=== PATIENT | male | born 1960 | race African-American/Black ===

== ENCOUNTER 2016-10-22 10:45 | Outpatient (CLI) | payer MEDICAID ==
[~2016-10-22] VITALS: Ht 167.6 cm; Wt 95.5 kg
--- NOTE | ~2016-10-22 | HEMODYNAMI ---
PATIENT:NED HOLDER MEDICAL RECORD: [id number] : 56 LOCATION:[facility] ADMISSION DATE: 10/22/16 Generatedon:10/22/201614:34 Patient name: NED HOLDER Patient #: [id number] SSN: : 1960 Date of study: 10/22/2016 Page: Of Hemodynamic Procedure Report Patient Data Patient Demographics Procedure consent was obtained First Name: NED Gender: Male Last Name: GLORY : 1960 Patient #: [id number] Age: 55 year(s) Race: Black Additional ID: [id number] Contact details [address]: [address] [place] [address] State: [place] City: [place] Zip code: [address] Past Medical History Allergies: No known allergies Admission Admission Data Admission Date: 10/22/2016 Admission Time: 10:45 Arrival Date: 10/22/2016 Arrival Time: 0:00 Admit Source: Other Height (in.): 65.75 BSA: 2.04 (m2) Height (cm.): 167 BMI: 34.22 (kg/m2) Weight (lbs.): 210.43 Weight (kg.): 95.45 Lab Results Lab Result Date: 10/22/2016 Lab Result Time: 0:00 Biochemistry Name Units Result Min Max BUN mg/dl 47 --(----)-* 7 18 Creatinine mg/dl 4.6 --(----)-* 0.6 1.3 CBC Name Units Result Min Max Hematocrit % 46.3 --(-*--)-- 42 54 Hemoglobin g/dl 15.4 --(-*--)-- 13.5 17.5 Procedure Procedure Types Cath Procedure Diagnostic Procedure LHC [facility] w/Coronaries Miscellaneous Procedures Moderate Sedation up to 15 minutes Peripheral Cath Diagnostic Procedure Abd/Extremity Renal Bilat Renal Arteriogram Procedure Description Procedure Date Procedure Date: 10/22/2016 Procedure Start Time: 14:17 Procedure End Time: 14:31 Procedure Staff Name Function Curtis Yo MD Performing Physician Clarita Andrade RT Scrub Kasandra Mulligan RT Monitor Sarai Boyd RN Nurse Procedure Data Cath Procedure Fluoroscopy Diagnostic fluoroscopy Total fluoroscopy Time: 2.5 time: 2.5 min min Diagnostic fluoroscopy Total fluoroscopy dose: 672 dose: 672 mGy mGy Contrast Material Contrast Material Type Amount (ml) Isovue 300 64 Entry Location Entry Primary Successful Side Size Upsize Upsize Entry Closure Succes sful Closure Location (Fr) 1 (Fr) 2 (Fr) Remarks Device Remarks Femoral Right 5 Fr Exoseal artery Estimated blood loss: 10 ml Diagnostic catheters Device Type Used For End Catheter Placement Cordis 5Fr JL 4.0 Procedure Catheter (MP) Cordis 5Fr 3DRC Catheter Procedure (MP) Procedure Complications No complications Procedure Medications Medication Administration Route Dosage Oxygen NC 2 l/min Lidocaine 2% added to field 20 Heparin Flush Bag added to field 2 bags (1000units/500ml NS) 0.9% NaCl I.V. 100 ml/hr Versed I.V. 1 mg Fentanyl I.V. 50 mcg Versed I.V. 0.5 mg Fentanyl I.V. 25 mcg Hemodynamics Rest BSA: 2.04 (m2) HGB: 15.4 (g/dl) O2 Consumption: Estimated: 260.66 (ml/min) O2 Co nsumption indexed: Estimated:127.77 (ml/min/m) Heart Rate: 96 (bpm) Snapshots Pre Cath Intra NCS Post Cath Vital Signs Time Heart Resp SPO2 etCO2 UI5popg NIBP (mmHg) Rhythm Pain Sedatio n Rate (ipm) (%) (mmHg) (mmHg) Status Level (bpm) 13:48:35 95 17 96 0 0 164/109(136) NSR 0 (11) 10(A) , No pain 13:52:58 95 23 97 0 0 155/108(128) NSR 0 (11) 10(A) , No pain 13:57:17 95 16 95 0 0 150/96(111) NSR 0 (11) 10(A) , No pain 14:01:32 95 17 94 0 0 147/103(130) NSR 0 (11) 10(A) , No pain 14:05:46 99 16 98 0 0 154/103(137) NSR 0 (11) 10(A) , No pain 14:10:06 97 14 98 0 0 148/98(120) NSR 0 (11) 9(A) , No pain 14:14:24 100 16 98 0 0 141/100(124) NSR 0 (11) 9(A) , No pain 14:18:38 99 16 98 0 0 123/104(119) NSR 0 (11) 9(A) , No pain 14:22:45 100 15 98 0 0 139/113(136) NSR 0 (11) 9(A) , No pain 14:26:59 98 16 98 0 0 151/102(117) NSR 0 (11) 9(A) , No pain 14:31:17 102 16 98 0 0 149/100(124) NSR 0 (11) 10(A) , No pain Medications Time Medication Route Dose Verified Delivered Reason Notes Effe ctiveness by by 13:53:04 Oxygen NC 2 Curtis Buffie used for l/min Srinath Boyd RN procedure 13:53:11 Lidocaine 2% added 20ml Curtis Curtis for local to vial Srinath Yo MD anesthetic field 13:53:18 Heparin Flush added 2 Curtis Curtis used for Bag to bags Srinath Yo MD procedure (1000units/500ml field NS) 13:53:29 0.9% NaCl I.V. 100 Curtis Buffie Per ml/hr Srinath Boyd RN physician 14:01:10 Versed I.V. 1 mg Curtis Buffie for Srinath Boyd RN sedation 14:01:16 Fentanyl I.V. 50 Curtis Buffie for mcg Srinath Boyd RN sedation 14:18:17 Versed I.V. 0.5 Curtis Buffie for mg Srinath Boyd RN sedation 14:18:21 Fentanyl I.V. 25 Curtis Buffie for mcg Srinath Boyd RN sedation Procedure Log Time Note 13:33:26 Lab Result : BUN 47 mg/dl 13:33:26 Lab Result : Hemoglobin 15.4 g/dl 13:33:26 Lab Result : Creatinine 4.6 mg/dl 13:33:26 Lab Result : Hematocrit 46.3 % 13:33:35 Diagnostic Cath Status : Elective 13:34:05 Admit Source: Other 13:34:07 Arrival Date: 10/22/2016 12:00:00 AM 13:34:17 Patient Height : 65.75 cm 13:34:24 Patient Weight : 210.43 kg 13:34:43 Sarai Boyd RN sent for patient. Start room use. 13:34:45 Time tracking: Regular hours 13:34:50 Plan of Care:Hemodynamics will remain stable., Cardiac rhythm will remain stable., Comfort level will be maintained., Respiratory function will remain adequate., Patient/ family verbilizes understanding of procedure., Procedure tolerated without complication., Recovers from procedure without complications.. 13:36:13 H&P Date Dictated: 10/04/2016 Within 30 days and on chart., H&P Addendum completed by physician on day of procedure. (MUST COMPLETE FOR ALL OUTPATIENTS). 13:43:03 Patient received from Pre/Post Procedure Room to CCL 1 Alert and oriented. Tansferred to table in Supine position. 13:43:04 Warm blankets applied, and porsha hugger turned on for patient comfort. 13:43:05 Correct patient and procedure confirmed by team. 13:43:06 Signed procedure consent form obtained from patient. 13:43:08 ECG and BP/O2 sat monitors applied to patient. 13:43:13 Pre-procedure instructions explained to patient. 13:43:15 Family in waiting room. 13:43:17 Patient NPO since Midnight. 13:44:00 Patient allergic to No known allergies 13:44:03 Is the patient allergic to Iodine/contrast media? No. 13:44:22 Is patient on blood thinner?No 13:44:35 Patient diabetic? Yes. 13:44:45 If diabetic: On Metformin? No 13:44:52 Snore? Yes 13:45:02 IV patent on arrival in left hand with 0.9% NaCl at [facility]. 13:45:11 Lab results completed and on chart. 13:45:17 Right groin area was prepped with chlora-prep and draped in sterile fashion 13:45:18 Alarms reviewed by R. N. 13:45:19 Sharps counted by scrub and verified by R.N. 13:45:20 Physician paged 13:45:21 Physician arrived 13:46:10 Sleep apnea? Unknown 13:46:37 Airway obstruction? No ? 13:46:47 Dentures? No ? 13:47:23 Vital chart was started 13:47:24 Baseline sample Acquired. 13:47:29 Rhythm: sinus rhythm 13:47:30 Full Disclosure recording started 13:53:04 Oxygen 2 l/min NC was administered by Sarai Boyd RN; used for procedure; 13:53:11 Lidocaine 2% 20ml vial added to field was administered by Curtis Yo MD; for local anesthetic; 13:53:18 Heparin Flush Bag (1000units/500ml NS) 2 bags added to field was administered by Curtis Yo MD; used for procedure; 13:53:29 0.9% NaCl 100 ml/hr I.V. was administered by Sarai Boyd RN; Per physician; 13:56:20 Use device set Femoral Dx 13:56:21 Acist Syringe opened to sterile field. 13:56:22 Bag Decanter opened to sterile field. 13:56:22 Medline Cath Pack opened to sterile field. 13:56:22 Terumo 5Fr Homer Sheath opened to sterile field. 13:56:23 St Louie 260cm J .035 wire opened to sterile field. 13:56:24 Acist Hand Control opened to sterile field. 13:56:25 Acist Manifold opened to sterile field. 13:56:25 Diagnostic Infinity 5Fr Multipack catheter opened to sterile field. 13:56:26 Tegaderm 4 x 4 opened to sterile field. 13:56:37 --------ALL STOP TIME OUT------ 13:56:38 Final Timeout: patient, procedure, and site verified with staff and physician. All members of the team are in agreement. 13:56:41 Right groin site verified by team. 13:56:54 Physical assessment completed. ASA score P 2 - A patient with mild systemic disease as per Curtis Yo MD. 13:57:05 Sedation plan: IV Moderate Sedation Versed, Fentanyl 14:00:36 Zero performed for pressure channel P1 14:00:47 Zero performed for pressure channel P1 14:01:10 Versed 1 mg I.V. was administered by Saari Boyd RN; for sedation; 14:01:16 Fentanyl 50 mcg I.V. was administered by Sarai Boyd RN; for sedation; 14:15:42 Procedure started. 14:17:09 Local anesthetic to right femoral artery with Lidocaine 2% by Curtis Yo MD.INITIAL ACCESS ONLY 14:18:17 Versed 0.5 mg I.V. was administered by Sarai Boyd RN; for sedation; 14:18:21 Fentanyl 25 mcg I.V. was administered by Sarai Boyd RN; for sedation; 14:18:34 A 5 Fr sheath was inserted into the Right Femoral artery 14:18:57 A Cordis 5Fr JL 4.0 Catheter (MP) was advanced over the wire and used for Procedure. 14:19:21 LCA angiography performed. 14:20:47 Catheter removed. 14:20:56 A Cordis 5Fr 3DRC Catheter (MP) was advanced over the wire and used for Procedure. 14:22:02 RCA angiography performed. 14:24:54 Right renal angiography performed. 14:25:32 Left renal angiography performed. 14:26:54 Catheter removed. 14:27:10 Cordis 5Fr Exoseal opened to sterile field. 14:27:28 Sheath removed intact; hemostasis achieved with Exoseal to the Right Femoral artery. 14:27:37 Procedure ended.(Physican Out) 14:27:56 Fluoroscopy time 02.50 minutes. 14:28:06 Fluoroscopy dose: 672 mGy 14:28:06 Flurop Dose total: 672 14:28:17 Contrast amount:Isovue 300 64ml. 14:28:19 Sharps counted by scrub and verified by R.N. 14:28:23 Insertion/operative site no bleeding no hematoma. 14:29:10 Post right femoral artery:stable 14:29:19 Post-procedure physical assessment completed. ASA score P 3 - A patient with severe systemic disease as per Curtis Yo MD. 14:29:25 Post procedure rhythm: unchanged. 14:29:30 Estimated blood loss: 10 ml 14:29:33 Post procedure instruction explained to patient.Patient verbalizes understanding. 14:30:04 Procedure type changed to Cath procedure, Diagnostic procedure, LHC, LHC w/Coronaries, Miscellaneous Procedures, Moderate Sedation up to 15 minutes, Peripheral Cath Diagnostic Procedure, Abd/Extremity, Renal, Bilat Renal Arteriogram 14:30:10 Procedure and supply charges have been captured, reviewed, submitted and are correct. 14:30:49 Procedure Complication : No complications 14:30:53 Vital chart was stopped 14::54 See physician's report for complete and final results. 14:30:55 Report given to Pre/Post Procedure Room. 14:30:59 Patient transfered to Pre/Post Procedure Room with Stretcher. 14:31:02 Procedure ended. 14:31:02 Full Disclosure recording stopped 14:31:06 End room use (Document Last) Device Usage Item Name Manufacture Quantity Catalog Hospital Part Current Minimal Lo t# / Number Charge Number Stock Stock Serial# Code Acist Acist 1 83050 [id number] 319309 [id number] 20 Syringe [employer] Inc Bag Microtek 1 2002S 522494 92158 680939 5 Decanter [employer] Inc. Medline Cardinal 1 [id number] 229151 02455 334247 5 Cath Pack Health Terumo 5Fr Terumo 1 [id number] 618794 789082 395437 [address] [facility] Louie 1 141613 808320 888659 488888 30 260cm J .035 wire Acist Hand Acist 1 35129 671216 474295 285055 5 Control [employer] Inc Acist Acist 1 99364 405185 285029 069676 5 Manifold [employer] Inc Diagnostic Cardinal 1 EC1074 689895 92489 079557 30 Vantage Sportsity Health 5Fr Multipack catheter Tegaderm 4 3M 1 1626W 896949 102090 597817 5 x 4 Cordis 5Fr Cardinal 1 213455 5 JL 4.0 Health Catheter (MP) Cordis 5Fr Cardinal 1 471313 5 3DRC Health Catheter (MP) Cordis 5Fr Cardinal 1 EX500 145333 071968 459217 10 WeDuc Signature Audit [place] Stage Time Signature Unsigned Intra-Procedure 10/22/2016 Clarita Andrade 2:34:43 PM RT(R) Signatures Monitor : Kasandra Mulligan RT Signature : Date : Time : [facility] [address] [place] [address]
[2016-10-22] MEDS ORDERED: ZYLOPRIM100 MG PO (10:55)
[2016-10-22] MEDS ORDERED: GLIMEPIRIDE4 MG PO (10:55)
[2016-10-22] MEDS ORDERED: FUROSEMIDE40 MG PO (10:55)
[2016-10-22] MEDS ORDERED: NORVASC10 MG PO (10:56)
[2016-10-22] MEDS ORDERED: JANUVIA50 MG PO (10:56)
[2016-10-22] MEDS ORDERED: NEURONTIN 300300 MG PO (10:56)
[2016-10-22 11:07] VITALS: BP 172/105; Ht 167.6 cm; Wt 95.5 kg
[2016-10-22 11:31] LABS: BASOPHILS 0.3 % (0.0-2.0); EOSINOPHILS 3.8 % (0-7); HEMATOCRIT 46.3 % (42.0-54.0); HEMOGLOBIN 15.4 g/dL (13.5-17.5); LYMPHOCYTES 39.5 % (15-50); MCH 28.2 pg (26.0-34.0); MCHC 33.3 g/dL (31.0-37.0); MCV 84.6 fL (80.0-100.0); MEAN PLATELET VOLUME 10.7 fL (7.4-10.4); MONOCYTES 9.5 % (2-11); NEUTROPHILS 46.9 % (40-80); PLATELET COUNT 141 10x3/uL (130-400); RBC 5.47 10x6/uL (4.20-6.10); RDW 12.8 % (11.5-14.5); WBC 3.9 10x3/uL (4.8-10.8)
[2016-10-22 11:53] LABS: CALCIUM 9.1 mg/dL (8.5-10.1); CARBON DIOXIDE 31.5 mmol/L (21.0-32.0); CREATININE - SERUM 4.6 mg/dL (0.6-1.3); POTASSIUM - SERUM 4.5 mmol/L (3.5-5.1)
--- NOTE | 2016-10-22 15:04 | NUR ---
DR ARMENTA AT BEDSIDE TALKING TO FAMILY PATIENT DENIED CHEST PAIN VSS WITH 5 FR EXOSEAL R/GROIN CDI
--- NOTE | 2016-10-22 15:24 | NUR ---
VSS WITH CHEST PAIN DENIED 5 FR EXOSEAL R/GROIN CDI NO BLEEDING NO HEMATOMA NOTED.
--- NOTE | 2016-10-22 16:09 | NUR ---
NO DISTRESS NOTED PATIENT SLEEPING WITH VSS. 5 FR EXOSEAL R/GROIN CDI NO BLEEDING NO HEMATOMA NOTED.
--- NOTE | 2016-10-22 17:54 | NUR ---
1630-ASSUMED CARE, IV FLUIDS PER PUMP AT 150CC/HR, RIGHT GROIN CDI, NO HEMATOMA OR BLEEDING NOTED, GROIN SOFT TO TOUCH. 1745-IV FLUIDS COMPLETE, IV D'C WITH CATH TIP INTACT, WRITTEN AND VERBAL INSTRUCTIONS GIVEN TO PT AND , UNDERSTOOD.
--- NOTE | 2016-11-01 12:24 | OP ---
PATIENT NAME: NED HOLDER MEDICAL RECORD: [id number] :56 LOCATION:D.CAT ADMISSION DATE: SURGEON: JACKSON ARMENTA M.D. DATE OF OPERATION: 10/22/2016 REFERRING PHYSICIAN: Dr. Vadim Bullock at [place], [place]. PROCEDURES PERFORMED: 1. Selective coronary angiography. 2. Renal angiography. INDICATION: A 55-year-old gentleman, who presents with cardiomyopathy and accelerated hypertension. EQUIPMENT USED: A 5-Faroese JL4, Leonardo right. TECHNIQUE: A 5-Faroese sheath was inserted in retrograde fashion in the right common femoral artery. Next, selective coronary angiography was performed in standard views using 5-Faroese JL4 and Leonardo right. Renal angiography was performed using the Leonardo right as well. CORONARY ANATOMY: 1. Left main: Left main trunk is moderate in caliber. It gives rise to the LAD and circumflex. There is no obstruction. 2. LAD: This is a large caliber vessel extending to the apex. The proximal vessel demonstrates a ruptured plaque representing a 60% stenosis or more. The first diagonal branch has diffuse disease as well. 3. Circumflex: This is moderate in caliber. The first lateral branch has a ruptured plaque representing an 80% stenosis. 4. Right coronary: This vessel is large in caliber and dominant. The proximal vessel has an ulcerated 80% stenosis. The mid vessel has an 80% stenosis as well. The distal vessel has an 80%-90% stenosis. 5. Renal arteries: Left renal artery is large in caliber. It has a significant plaque representing an 80% stenosis in the proximal 1/3 of the vessel. Right renal artery is not well visualized. It appears to have moderate disease in the proximal segment. 6. Left ventricle: Left ventriculogram was not performed secondary to the contrast load and the patient's elevated creatinine. IMPRESSION: 1. Significant 3-vessel coronary artery disease. 2. Severe left ventricular dysfunction by recent echo revealing ejection fraction of 10%-15%. 3. Renal artery stenosis. RECOMMENDATIONS: At this point, our choices are somewhat limited. I am concerned he would have to undergo dialysis if he underwent bypass grafting. Furthermore, with his reduced ejection fraction, he may not be a good candidate for bypass grafting. However, multivessel intervention carries hazards of causing renal failure as well. At this point, I will review the situation with the patient and his family and Dr. Bullock and come up with a strategy after that. TRANSINT:[id number] Voice Confirmation ID: [id number] DOCUMENT ID: [id number] OPERATIVE REPORT [id number] NED HOLDER TIMOTHY E M.D. at 1224 CC: [id number] DICTATION DATE: 10/22/16 1440 SUPERVISOR HEAT TREATING: 10/22/16 1459 DEP CLI 10/22/16 [place] [id number]
== END 2016-10-22 17:50 | disposition home or self-care (01) ==
LOC: D.CATH 10:45
PROVIDERS: Internal Medicine Cardiovascular Disease
DX: I25.10 Atherosclerotic heart disease of native coronary artery without angina pectoris (principal); I42.9 Cardiomyopathy, unspecified; I10 Essential (primary) hypertension; I70.1 Atherosclerosis of renal artery

== ENCOUNTER 2016-11-27 09:00 | Outpatient (CLI) | payer MEDICAID ==
[~2016-11-27] VITALS: Ht 167.6 cm; Wt 95.5 kg
--- NOTE | ~2016-11-27 | OP ---
PATIENT NAME: NED HOLDER MEDICAL RECORD: [id number] :56 LOCATION:D.CAT ADMISSION DATE: SURGEON: JACKSON ARMENTA M.D. DATE OF OPERATION: 11/27/2016 REFERRING PHYSICIAN: Dr. Vadim Bullock at [place], [place]. PROCEDURES PERFORMED: 1. PTCA and stent placement to the LAD. 2. PTCA and stent placement in the circumflex. INDICATION: A 56-year-old gentleman who recently presents with angina and heart failure. Cardiac catheterization revealed high-grade disease involving the LAD, circumflex, and right coronary artery. At this point, he is not considered a surgical candidate because of his renal issues. EQUIPMENT USED: A 6-Maltese XB LAD 4.0 guide, BMW guide wire, 3.0 x 30 mm Integrity stent, 2.5 x 22 mm Integrity stent, 2.25 x 14 mm Integrity stent. DESCRIPTION OF INTERVENTION: A 6-Maltese sheath was inserted in retrograde fashion in the right common femoral artery. Next, a 6-Maltese XB LAD guide was advanced and engaged in the left main coronary artery. A 100 units per kilogram of heparin was infused. Injections revealed ruptured plaque representing an 80%-90% stenosis in the proximal LAD. The disease process extended past the first diagonal branch. At this point, a BMW guide wire was placed in the distal vessel of the LAD. A 3.0 x 30 mm Integrity stent was placed across this long diseased area and deployed at 14 atmospheres. Injection reveals stent to be widely patent with no compromise of the diagonal branch. Attention was then turned to the circumflex. Injections revealed a long 90% stenosis involving the first lateral branch. There appeared to be a ruptured plaque as well. A BMW guide wire was placed in the distal vessel. It was stented with a 2.5 x 22 mm Integrity stent at 12 atmospheres. Injection shows stent to be widely patent. However, distal to the stent, there appeared to be an edge dissection. When the wire was pulled back, we confirmed this finding. At this point, a 2.25 x 14 mm Integrity stent was placed in the distal edge of the existing stent. Stent was deployed at 11 atmospheres. Injection revealed both stents to be widely patent with 0% residual stenosis. This resulted in resolution of the edge dissection. At this point, the wire and guide were removed. IMPRESSION: 1. Successful percutaneous transluminal coronary angioplasty and stent in the LAD with 0% residual stenosis. 2. Successful percutaneous transluminal coronary angioplasty and stent in the circumflex with 0% residual stenosis. PLAN: I will likely stage ____ lesion in 10 days to 2 weeks to allow his renal function to recover. TRANSINT:[id number] Voice Confirmation ID: [id number] DOCUMENT ID: [id number] OPERATIVE REPORT [id number] NED HOLDER TIMOTHY E M.D. CC: [id number] DICTATION DATE: 11/27/16 145 REGISTERED REPRESENTATIVE: 11/27/16 2351 DEP CLI 11/27/16 [place] [id number] [place] [id number]
--- NOTE | ~2016-11-27 | HEMODYNAMI ---
PATIENT:NED HOLDER MEDICAL RECORD: [id number] : 56 LOCATION:[facility] ADMISSION DATE: 11/27/16 Generatedon:11/27/201615:00 Patient name: NED HOLDER Patient #: [id number] SSN: : 1960 Date of study: 11/27/2016 Page: Of Hemodynamic Procedure Report Patient Data Patient Demographics Procedure consent was obtained First Name: NED Gender: Male Last Name: GLORY : 1960 Patient #: [id number] Age: 56 year(s) Race: Black Additional ID: [id number] Contact details [address]: [address] [place] [address] State: [place] City: [place] Zip code: [address] Past Medical History Allergies: No known allergies Admission Admission Data Admission Date: 11/27/2016 Admission Time: 9:00 Admit Source: Other Lab Results Lab Result Date: 11/27/2016 Lab Result Time: 9:50 Biochemistry Name Units Result Min Max BUN mg/dl 52 --(----)-* 7 18 Creatinine mg/dl 4.9 --(----)-* 0.6 1.3 CBC Name Units Result Min Max Hematocrit % 42.8 --(*---)-- 42 54 Hemoglobin g/dl 14.4 --(*---)-- 13.5 17.5 Procedure Procedure Types Cath Procedure PCI Procedure Coronary Stent Initial x2 Miscellaneous Procedures Moderate Sedation up to 45 minutes Procedure Description Procedure Date Procedure Date: 11/27/2016 Procedure Start Time: 14:22 Procedure End Time: 15:00 Procedure Staff Name Function Alexia Kan RT Scrub Asif Velasquez RN Nurse Curtis Yo MD Performing Physician Dann Molina RT Monitor Procedure Data Cath Procedure Fluoroscopy Diagnostic fluoroscopy Total fluoroscopy Time: 8.3 time: 8.3 min min Diagnostic fluoroscopy Total fluoroscopy dose: dose: 1420 mGy 1420 mGy Contrast Material Contrast Material Type Amount (ml) Isovue 300 234 Entry Location Entry Primary Successful Side Size Upsize Upsize Entry Closure Succes sful Closure Location (Fr) 1 (Fr) 2 (Fr) Remarks Device Remarks Femoral Right 6 Fr Exoseal artery Short Estimated blood loss: 10 ml Procedure Medications Medication Administration Route Dosage Oxygen NC 2 l/min Heparin Flush Bag added to field 2 bags (1000units/500ml NS) 0.9% NaCl I.V. 100 ml/hr Fentanyl I.V. 50 mcg Versed I.V. 1 mg Heparin Bolus I.V. 9500 units Nitroglycerin IC/IA I.C. 100 mcg Brilinta P.O. 180 mg Hemodynamics Rest HGB: 14.4 (g/dl) Heart Rate: 97 (bpm) Snapshots Pre Cath Intra NCS Post Cath Vital Signs Time Heart Resp SPO2 etCO2 CB8tbls NIBP (mmHg) Rhythm Pain Sedatio n Rate (ipm) (%) (mmHg) (mmHg) Status Level (bpm) 14:03:55 91 17 96 0 0 168/110(133) NSR 0 (11) 10(A) , No pain 14:13:33 91 19 95 0 0 160/102(128) NSR 0 (11) 10(A) , No pain 14:17:57 96 18 98 0 0 174/99(127) NSR 0 (11) 10(A) , No pain 14:22:20 91 18 98 0 0 174/101(132) NSR 0 (11) 9(A) , No pain 14:26:33 93 16 98 0 0 158/94(131) NSR 0 (11) 9(A) , No pain 14:30:56 96 16 98 0 0 166/100(130) NSR 0 (11) 9(A) , No pain 14:35:20 95 15 99 0 0 180/103(133) NSR 0 (11) 9(A) , No pain 14:39:36 94 17 98 0 0 167/99(139) NSR 0 (11) 9(A) , No pain 14:44:00 95 16 99 0 0 169/102(130) NSR 0 (11) 9(A) , No pain 14:48:22 98 18 99 0 0 173/105(137) NSR 0 (11) 9(A) , No pain 14:52:46 99 17 99 0 0 176/109(141) NSR 0 (11) 9(A) , No pain 14:57:15 97 20 98 0 0 177/106(144) NSR 0 (11) 10(A) , No pain Medications Time Medication Route Dose Verified Delivered Reason Notes Effectiveness by by 14:17:54 Oxygen NC 2 Asif [place]ug[place] Per physician l/min Ron Velasquez RN RN 14:18:03 Heparin Flush added 2 Asif Asif used for Bag to bags Ron Velasquez RN procedure (1000units/500ml field RN NS) 14:18:12 0.9% NaCl I.V. 100 Asif Asif Per physician ml/hr Ron Velasquez RN RN 14:18:35 Fentanyl I.V. 50 Asif Asif for sedation mcg Ron Velasquez RN RN 14:18:41 Versed I.V. 1 mg Asif Gold for sedation Ron Velasquez RN RN 14:29:59 Heparin Bolus I.V. 9500 Asif Gold for units Ron Velasquez RN anticoagulation RN 14:44:01 Nitroglycerin I.C. 100 Asif Curtis for IC/IA mcg Ron Yo MD vasodilation RN 14:53:51 Brilinta P.O. 180 Asif Gold for mg Ron Velasquez RN antiplatelet RN therapy Procedure Log Time Note 13:40:23 Asif Velasquez RN sent for patient. Start room use. 13:54:39 Informed consent obtained and on chart 13:55:06 Admit Source: Other 13:55:21 Diagnostic Cath status Elective 13:55:25 Time tracking: Regular hours 13:55:28 Plan of Care:Hemodynamics will remain stable., Cardiac rhythm will remain stable., Comfort level will be maintained., Respiratory function will remain adequate., Patient/ family verbilizes understanding of procedure., Procedure tolerated without complication., Recovers from procedure without complications.. 13:58:05 Patient received from Pre/Post Procedure Room to CCL 1 Alert and oriented. Tansferred to table in Supine position. 13:58:06 Warm blankets applied, and porsha hugger turned on for patient comfort. 13:58:07 ECG and BP/O2 sat monitors applied to patient. 13:58:07 Correct patient and procedure confirmed by team. 13:58:24 H&P Date Dictated: 11/08/2016 Within 30 days and on chart., H&P Addendum completed by physician on day of procedure. (MUST COMPLETE FOR ALL OUTPATIENTS). 13:58:26 Pre-op teaching completed and patient verbalized understanding. 13:58:26 Pre-procedure instructions explained to patient. 13:58:27 Family in waiting room. 13:58:29 Patient NPO since Midnight. 14:02:40 Vital chart was started 14:07:33 Vital chart was started 14:08:39 Vital chart was stopped 14:12:28 Vital chart was started 14:14:38 Baseline sample Acquired. 14:14:43 Rhythm: sinus rhythm 14:14:51 Patient allergic to No known allergies 14:14:53 Is the patient allergic to Iodine/contrast media? No. 14:14:54 Is patient on blood thinner?No 14:14:55 Patient diabetic? Yes. 14:14:56 If diabetic: On Metformin? No 14:14:59 Previous problem with sedation/anesthesia? No ? 14:15:00 Snore? Yes 14:15:01 Sleep apnea? Yes 14:15:02 Deviated septum? No 14:15:02 Opens mouth fully? Yes 14:15:03 Sticks out tongue? Yes 14:15:04 Airway obstruction? No ? 14:15:06 Dentures? No ? 14:15:08 Pre procedure: right dorsailis pedis pulse 1+ Palpable, but thready & weak; easily obliterated 14:15:12 Patient pain scale 0/10 ?. 14:15:19 IV patent on arrival in right forearm with 0.9% NaCl at KVO. 14:15:58 Lab Result : BUN 52 mg/dl 14:15:58 Lab Result : Creatinine 4.9 mg/dl 14:15:58 Lab Result : Hemoglobin 14.4 g/dl 14:15:58 Lab Result : Hematocrit 42.8 % 14:16:08 Right groin area was prepped with chlora-prep and draped in sterile fashion 14:16:12 Lab results completed and on chart. 14:16:14 Alarms reviewed by R. N. 14:16:14 Sharps counted by scrub and verified by R.N. 14:16:19 Use device set Femoral PCI 14:16:20 Tegaderm 4 x 4 opened to sterile field. 14:16:21 St Louie 260cm J .035 wire opened to sterile field. 14:16:21 Merit BasixCompak Inflation Kit opened to sterile field. 14:16:22 Acist Manifold opened to sterile field. 14:16:23 Terumo 6Fr [place] Sheath opened to sterile field. 14:16:23 Medline Cath Pack opened to sterile field. 14:16:24 Bag Decanter opened to sterile field. 14:16:25 High Pressure Extension Tubing (Yo) opened to sterile field. 14:16:25 Acist Hand Control opened to sterile field. 14:16:25 Acist Syringe opened to sterile field. 14:16:59 Baca BMW [place] 2 J-tip 300cm 0.014 guide wir opened to sterile field. 14:17:13 Physician arrived 14:17:13 --------ALL STOP TIME OUT------ 14:17:14 Final Timeout: patient, procedure, and site verified with staff and physician. All members of the team are in agreement. 14:17:16 Right groin site verified by team. 14:17:20 Physical assessment completed. ASA score P 2 - A patient with mild systemic disease as per Curtis Yo MD. 14:17:23 Sedation plan: IV Moderate Sedation Versed, Fentanyl 14:17:54 Oxygen 2 l/min NC was administered by Asif Velasquez RN; Per physician; 14:18:03 Heparin Flush Bag (1000units/500ml NS) 2 bags added to field was administered by Asif Velasquez RN; used for procedure; 14:18:12 0.9% NaCl 100 ml/hr I.V. was administered by Asif Velasquez RN; Per physician; 14:18:35 Fentanyl 50 mcg I.V. was administered by Asif Velasquez RN; for sedation; 14:18:41 Versed 1 mg I.V. was administered by Asif Velasquez RN; for sedation; 14:22:04 Procedure started. 14:22:04 Full Disclosure recording started 14:22:09 Local anesthetic to right femoral artery with Lidocaine 2% by Curtis Yo MD.INITIAL ACCESS ONLY 14:23:10 A 6 Fr Short sheath was inserted into the Right Femoral artery 14:23:13 Zero performed for pressure channel P1 14:24:33 Cordis 6FR XBLAD 3.5 guide catheter opened to sterile field. 14:24:43 6 Fr xblad 3.5 guide catheter was inserted over the wire 14:26:48 Guide Catheter removed. unable to cannulate vessel. 14:26:54 Cordis 6FR XBLAD 4.0 guide catheter opened to sterile field. 14:27:52 6 Fr xblad 4 guide catheter was inserted over the wire 14:29:42 LCA angiography performed. 14:29:59 Heparin Bolus 9500 units I.V. was administered by Asif Velasquez RN; for anticoagulation; 14:31:38 BMW wire advanced. 14:31:39 Wire advanced across lesion. 14:33:19 Inflation Number: 1 A Medtronic Integrity 3.0 X 30 stent was prepped and advanced across the Prox LAD. The stent was deployed at 11 KALYN for 0:10 (min:sec). 14:34:39 Stent catheter was removed intact over wire. 14:34:42 Wire redirected to CX/OM. 14:39:26 Wire advanced across lesion. 14:40:43 Inflation Number: 1 A Medtronic Integrity 2.5 X 22 stent was prepped and advanced across the 1st Ob Monique. The stent was deployed at 14 KALYN for 0:10 (min:sec). 14:44:01 Nitroglycerin IC/IA 100 mcg I.C. was administered by Curtis Yo MD; for vasodilation; 14:47:33 Stent catheter was removed intact over wire. 14:49:35 Inflation Number: 2 A Medtronic Integrity 2.25 X 14 stent was prepped and advanced across the 1st Ob Monique. The stent was deployed at 11 KALYN for 0:10 (min:sec). 14:49:52 Stent catheter was removed intact over wire. 14:49:53 Wire removed. 14:49:54 Guide catheter removed. 14:50:00 Cordis 6Fr Exoseal opened to sterile field. 14:50:10 Sheath removed intact; hemostasis achieved with Exoseal to the Right Femoral artery. 14:52:48 Procedure ended.(Physican Out) 14:53:21 Fluoroscopy time 08.30 minutes. 14:53:28 Flurop Dose total: 1420 14:53:28 Fluoroscopy dose: 1420 mGy 14:53:34 Contrast amount:Isovue 300 234ml. 14:53:35 Sharps counted by scrub and verified by R.N. 14:53:51 Brilinta 180 mg P.O. was administered by Asif Velasquez RN; for antiplatelet therapy; 14:53:59 Insertion/operative site no bleeding no hematoma. 14:54:02 Post-op/insertion site Right Femoral artery dressed using a 4 x 4 and Tegaderm. 14:54:06 Post right femoral artery:stable, soft, clean and dry 14:54:08 Post Procedure Pulses reassessed and unchanged 14:54:13 Post-procedure physical assessment completed. ASA score P 2 - A patient with mild systemic disease as per Curtis Yo MD. 14:54:16 Post procedure rhythm: unchanged. 14:54:19 Estimated blood loss: 10 ml 14:54:21 Post procedure instruction explained to patient.Patient verbalizes understanding. 14:54:22 Patient needs reinforcement of post procedure teaching. 14:58:19 Procedure type changed to Cath procedure, PCI procedure, Coronary Stent Initial x2, Miscellaneous Procedures, Moderate Sedation up to 45 minutes 14:59:37 Procedure and supply charges have been captured, reviewed, submitted and are correct. 14:59:57 See physician's report for complete and final results. 14:59:58 Report given to Pre/Post Procedure Room. 15:00:07 Patient transfered to Pre/Post Procedure Room with Stretcher. 15:00:09 Procedure ended. 15:00:09 Full Disclosure recording stopped 15:00:20 End room use (Document Last) 15:00:38 Vital chart was stopped Intervention Summary Intervention Notes Time ActionType Lesion and Equipment Action# Pressure Duration Attributes Used 14:33:19 Place stent Prox LAD Medtronic 1 11 00:10 Integrity 3.0 X 30 stent 14:40:43 Place stent 1st Ob Monique Medtronic 1 14 00:10 Integrity 2.5 X 22 stent 14:49:35 Place stent 1st Ob Monique Medtronic 2 11 00:10 Integrity 2.25 X 14 stent Device Usage Item Name Manufacture Quantity Catalog Hospital Part Current Minimal L ot# / Number Charge Number Stock Stock Serial# Code Tegaderm 4 3M 1 [id number] 317310 289162 238[address] Louie 1 [id number] 200385 869738 135773 30 260cm J .035 wire Merit Merit 1 [id number] 315243 310418 15 BasixCompak Medical Inflation Kit Acist Acist 1 60884 428080 060987 003296 5 Manifold Medical [employer] Inc Terumo 6Fr Terumo 1 [id number] 106485 440903 658574 40 [place] Sheath Medline Cardinal 1 [id number] 224231 19865 725700 5 Cath Pack Health Bag Microtek 1 2002S 500513 14152 751840 5 DecAgileMD [employer] Inc[employer] Acist Hand Acist 1 25216 758871 452261 479915 5 Control Medical Systems Inc Acist Acist 1 95886 282228 535451 493767 20 Syringe Medical Systems Inc Baca BMW Baca 1 [id number] 128094 739819 244805 5 [place] 2 Vascular J-tip 300cm 0.014 guide wir Cordis 6FR Cardinal 1 [id number] 836649 891953 067244 10 XBLAD 3.5 Health guide catheter Cordis 6FR Cardinal 1 [id number] 473333 997857 383522 3 XBLAD 4.0 Health guide catheter Medtronic Medtronic 1 [id number] 048391 207382 027028 1 0 [id number] Integrity 3.0 X 30 stent Medtronic Medtronic 1 [id number] 068417 188799 1 0 [id number] Integrity 2.5 X 22 stent Medtronic Medtronic 1 [id number] 369448 400151 073458 1 0 [id number] Integrity 2.25 X 14 stent Cordis 6Fr Cardinal 1 EX600 985766 494490 517027 10 Theater [employer] High [facility] 1 [id number] 369196 11661 119780 10 Pressure Medical Extension Tubing (Yo) Signature Audit Vona Stage Time Signature Unsigned Intra-Procedure 11/27/2016 Dann Molina 3:00:36 PM RT(R) Signatures Monitor : Dann Molina RT Signature : Date : Time : [address] [place] [address]
[~2016-11-27 09:00] MED LIST: FUROSEMIDE40 MG PO; GLIMEPIRIDE4 MG PO; JANUVIA50 MG PO; NEURONTIN 300300 MG PO; NORVASC10 MG PO; ZYLOPRIM100 MG PO
[2016-11-27] MEDS ORDERED: MUCOMYST 20200 MG/M2 INH (09:23)
[2016-11-27 09:29] VITALS: BP 182/101; Ht 167.6 cm; Wt 95.5 kg
[2016-11-27 10:00] LABS: BASOPHILS 0.5 % (0-2); EOSINOPHILS 3.5 % (0-7); HEMATOCRIT 42.8 % (42.0-54.0); HEMOGLOBIN 14.4 g/dL (13.5-17.5); LYMPHOCYTES 36.3 % (15-50); MCH 28.3 pg (26.0-34.0); MCHC 33.6 g/dL (31.0-37.0); MCV 84.1 fL (80.0-100.0); MEAN PLATELET VOLUME 10.8 fL (7.4-10.4); MONOCYTES 8.5 % (2-11); NEUTROPHILS 51.2 % (40-80); PLATELET COUNT 169 10x3/uL (130-400); RBC 5.09 10x6/uL (4.20-6.10); WBC 4.2 10x3/uL (4.8-10.8)
[2016-11-27 10:07] LABS: ANION GAP 11.7 mmol/L (8-16); CALCIUM 8.5 mg/dL (8.5-10.1); CARBON DIOXIDE 28.9 mmol/L (21.0-32.0); CREATININE - SERUM 4.9 mg/dL (0.6-1.3); POTASSIUM - SERUM 4.6 mmol/L (3.5-5.1)
[2016-11-27] MEDS ORDERED: BRILINTA90 MG PO (15:06)
--- NOTE | 2016-11-27 18:04 | NUR ---
1515-RIGHT GROIN CDI, NO HEMATOMA OR BLEEDING NOTED, SOFT TO TOUCH. FAMILY AT SIDE 1545-NO CHANGE IN RIGHT GROIN, RESTING COMFORTABLY
== END 2016-11-27 19:10 | disposition home or self-care (01) ==
LOC: D.CATH 09:00
PROVIDERS: Internal Medicine Cardiovascular Disease
DX: I25.10 Atherosclerotic heart disease of native coronary artery without angina pectoris (principal); I42.9 Cardiomyopathy, unspecified; N19 Unspecified kidney failure; Z01.812 Encounter for preprocedural laboratory examination

== ENCOUNTER → 2017-12-29 08:37 | Outpatient (CLI) | payer MEDICAID ==
[~2017-12-29] VITALS: Ht 167.6 cm; Wt 85.5 kg
--- NOTE | ~2017-12-29 | HEMODYNAMI ---
PATIENT:NED HOLDER MEDICAL RECORD: [id number] : 56 LOCATION:[facility] ADMISSION DATE: 12/29/17 Generatedon:12/29/201711:25 Patient name: NED HOLDER Patient #: [id number] SSN: : 1960 Date of study: 12/29/2017 Page: Of Hemodynamic Procedure Report Patient Data Patient Demographics Procedure consent was obtained First Name: NED Gender: Male Last Name: GLORY : 1960 [facility] Initial: NOEL Age: 57 year(s) Patient #: [id number] Race: Black Additional ID: [id number] Contact details Address: [address] [place] [address] State: [place] City: [place] Zip code: [address] Past Medical History Allergies: No known allergies Admission Admission Data Admission Date: 12/29/2017 Admission Time: 8:37 Admit Source: Other Lab Results Lab Result Date: 12/29/2017 Lab Result Time: 9:30 Biochemistry Name Units Result Min Max BUN mg/dl 42 --(----)-* 7 18 Creatinine mg/dl 5.7 --(----)-* 0.6 1.3 CBC Name Units Result Min Max Hematocrit % 32.3 *-(----)-- 42 54 Hemoglobin g/dl 11 *-(----)-- 13.5 17.5 Procedure Procedure Types Cath Procedure Diagnostic Procedure C [facility] w/Coronaries PCI Procedure Coronary Stent Coronary Stent Initial Procedure Description Procedure Date Procedure Date: 12/29/2017 Procedure Start Time: 10:45 Procedure End Time: 11:22 Procedure Staff Name Function Curtis Yo MD Performing Physician Patric Randolph RT Monitor Dann Molina RT Scrub Asif Velasquez RN Nurse Procedure Data Cath Procedure Fluoroscopy Diagnostic fluoroscopy Total fluoroscopy Time: 7.1 time: 7.1 min min Diagnostic fluoroscopy Total fluoroscopy dose: 586 dose: 586 mGy mGy Contrast Material Contrast Material Type Amount (ml) Isovue 300 151 Entry Location Entry Primary Successful Side Size Upsize Upsize Entry Closure Succes sful Closure Location (Fr) 1 (Fr) 2 (Fr) Remarks Device Remarks Femoral Right 5 Fr 6 Fr artery Short Estimated blood loss: 10 ml Diagnostic catheters Device Type Used For End Catheter Placement MULTIPACK JL 4.0 5Fr Procedure catheter MULTIPACK 3DRC 5Fr Procedure catheter MULTIPACK Pigtail 5 Fr Procedure catheter Procedure Complications No complications Procedure Medications Medication Administration Route Dosage Oxygen etCO2 Nasal cannula 2 l/min Heparin Flush Bag added to field 2 bags (1000units/500ml NS) 0.9% NaCl I.V. 100 ml/hr Fentanyl I.V. 50 mcg Versed I.V. 1 mg Heparin Bolus I.V. 8500 units Plavix P.O. 600 mg Hemodynamics Rest Heart Rate: 92 (bpm) Pressure Samples Time Site Value (mmHg) Purpose Heart Use Rate(bpm) 10:48 AO 161/92(122) Snapshot 83 10:53 LV 163/1,18 Snapshot 88 10:53 AO 162/73(113) Pullback 85 10:53 LV 143/1,16 Pullback 85 Gradients Valve Time Site 1 Site 2 Mean SEP/DFP Peak To Heart Use (mmHg) (sec/min) Peak Rate (mmHg) (bpm) Aortic 10:53 LV AO 0 5 0 85 143/1,16 162/73(113) Calculations Valve P-P Mean Valve Index Valve Source Name Gradient Area Flow (cm2) Aortic 0 0 0 0 Snapshots Pre Cath Intra NCS Post Cath Vital Signs Time Heart Resp SPO2 etCO2 NIBP (mmHg) Rhythm Pain Sedation Rate (ipm) (%) (mmHg) Status Level (bpm) 10:31:49 76 16 94 1.4 180/94(151) NSR 0 (11) 10(A) , No pain 10:36:34 78 17 100 0 173/88(133) NSR 0 (11) 10(A) , No pain 10:41:15 83 17 100 9.7 163/91(135) NSR 0 (11) 10(A) , No pain 10:45:50 86 17 95 9.7 165/102(132) NSR 0 (11) 9(A) , No pain 10:50:18 82 16 100 36.6 173/95(129) NSR 0 (11) 9(A) , No pain 10:54:50 86 16 100 34.4 165/94(131) NSR 0 (11) 9(A) , No pain 10:59:16 81 16 100 38.8 164/91(131) NSR 0 (11) 9(A) , No pain 11:03:47 82 17 100 37.3 163/88(132) NSR 0 (11) 9(A) , No pain 11:08:17 81 16 100 7.4 161/84(127) NSR 0 (11) 9(A) , No pain 11:13:43 82 17 100 36.6 175/96(134) NSR 0 (11) 9(A) , No pain 11:19:31 81 17 100 36.6 179/98(135) NSR 0 (11) 9(A) , No pain Medications Time Medication Route Dose Verified Delivered Reason Notes Effectiveness by by 10:31:15 Oxygen etCO2 2 Curtis Asif Per physician Nasal l/min Srinath Velasquez RN cannula 10:31:23 Heparin Flush added 2 Curtis Asif used for Bag to bags Srinath Velasquez RN procedure (1000units/500ml field NS) 10:31:32 0.9% NaCl I.V. 100 Curtis Asif Per physician ml/hr Srinath Velasquez RN 10:40:49 Fentanyl I.V. 50 Curtis Asif for sedation mcg Srinath Velasquez RN 10:40:55 Versed I.V. 1 mg Curtis Asif for sedation Srinath Velasquez RN 11:05:43 Heparin Bolus I.V. 8500 Curtis Asif for units Srinath Velasquez RN anticoagulation 11:19:16 Plavix P.O. 600 Curtis Asif for mg Srinath Velasquez RN antiplatelet therapy Procedure Log Time Note 10:00:35 Patric Randolph RT(R) sent for patient. Start room use. 10:11:10 Informed consent obtained and on chart 10:11:13 Admit Source: Other 10:11:26 Diagnostic Cath status Elective 10::27 Time tracking: Regular hours (M-F 7:00 - 5:00) 10:11:30 Plan of Care:Hemodynamics will remain stable., Cardiac rhythm will remain stable., Comfort level will be maintained., Respiratory function will remain adequate., Patient/ family verbilizes understanding of procedure., Procedure tolerated without complication., Recovers from procedure without complications.. 10:19:20 H&P Date Dictated: 12/29/2017 New H&P dictated by physician.. 10:20:13 Lab Result : Creatinine 5.7 mg/dl 10:20:13 Lab Result : BUN 42 mg/dl 10:20:13 Lab Result : Hemoglobin 11 g/dl 10:20:13 Lab Result : Hematocrit 32.3 % 10:20:15 Lab results completed and on chart. 10:24:03 Patient received from Pre/Post Procedure Room to CCL 3 Alert and oriented. Tansferred to table in Supine position. 10:24:04 Warm blankets applied, and porsha hugger turned on for patient comfort. 10:24:04 Correct patient and procedure confirmed by team. 10:24:05 ECG and BP/O2 sat monitors applied to patient. 10:24:06 Pre-procedure instructions explained to patient. 10:24:06 Pre-op teaching completed and patient verbalized understanding. 10:24:07 Family in waiting room. 10:24:08 Patient NPO since Midnight. 10:24:28 Patient allergic to No known allergies 10:30:22 Vital chart was started 10:31:15 Oxygen 2 l/min etCO2 Nasal cannula was administered by Asif Vleasquez RN; Per physician; 10:31:23 Heparin Flush Bag (1000units/500ml NS) 2 bags added to field was administered by Asif Velasquez RN; used for procedure; 10:31:32 0.9% NaCl 100 ml/hr I.V. was administered by Asif Velasquez RN; Per physician; 10:34:15 Is the patient allergic to Iodine/contrast media? No. 10:34:16 Is patient on blood thinner?No 10:34:17 Patient diabetic? Yes. 10:34:18 If diabetic: On Metformin? No 10:34:20 Previous problem with sedation/anesthesia? No ? 10:34:21 Snore? Yes 10:34:22 Sleep apnea? No 10:34:23 Deviated septum? No 10:34:24 Opens mouth fully? Yes 10:34:24 Sticks out tongue? Yes 10:34:27 Airway obstruction? No ? 10:34:28 Dentures? No ? 10:34:34 Pre procedure: right dorsailis pedis pulse 1+ Palpable, but thready & weak; easily obliterated 10:34:35 RESERVE LEFT ARM 10:34:39 Patient pain scale 0/10 ?. 10:38:26 IV patent on arrival in right forearm with 0.9% NaCl at [facility]. 10:38:33 Right groin area was prepped with chlora-prep and draped in sterile fashion 10:38:35 Alarms reviewed by R. N. 10:38:36 Sharps counted by scrub and verified by R.N. 10:38:47 Use device set Femoral Dx 10:38:50 Tegaderm 4 x 4 (1626W) opened to sterile field. 10:38:52 PERCUTANEOUS ENTRY 19GA needle opened to sterile field. 10:38:53 ACIST Hand Control (33172) opened to sterile field. 10:38:53 ACIST Manifold (28432) opened to sterile field. 10:38:54 ACIST Syringe (49325) opened to sterile field. 10:38:55 Bag Decanter (2002S) opened to sterile field. 10:38:55 Medline Cath Pack ([id number]) opened to sterile field. 10:38:56 DIAGNOSTIC WIRE .035 260cm J wire (702631) opened to sterile field. 10:38:57 DIAGNOSTIC Multipack 5Fr catheter set (UW4242) opened to sterile field. 10:38:59 SHEATH Prelude 5Fr 0.035 (YXU-5F-09-035) opened to sterile field. 10:39:07 --------ALL STOP TIME OUT------ 10:39:07 Final Timeout: patient, procedure, and site verified with staff and physician. All members of the team are in agreement. 10:39:10 Right groin site verified by team. 10:39:12 Physical assessment completed. ASA score P 2 - A patient with mild systemic disease as per Curtis Yo MD. 10:39:15 Sedation plan: IV Moderate Sedation Medication:Versed, Fentanyl 10:40:49 Fentanyl 50 mcg I.V. was administered by Asif Velasquez RN; for sedation; 10:40:55 Versed 1 mg I.V. was administered by Asif Velasquez RN; for sedation; 10:44:13 Procedure started. 10:44:14 Full Disclosure recording started 10:45:24 Local anesthetic to right femoral artery with Lidocaine 2% by Curtis Yo MD.INITIAL ACCESS ONLY 10:45:40 Baseline sample Acquired. 10:45:44 Rhythm: sinus rhythm 10:45:50 Baseline sample Acquired. 10:46:09 A 5 Fr sheath was inserted into the Right Femoral artery 10:47:19 A MULTIPACK JL 4.0 5Fr catheter was advanced over the wire and used for Procedure. 10:48:18 LCA angiography performed. 10:49:18 Catheter exchanged over wire. 10:49:25 A MULTIPACK 3DRC 5Fr catheter was advanced over the wire and used for Procedure. 10:51:21 RCA angiography performed. 10:51:23 Catheter exchanged over wire. 10:51:28 Use device set YO PCI 10:51:37 SHEATH Prelude 6Fr 0.035 (EHY-0N-47-035) opened to sterile field. 10:51:41 BMW 300cm [place] 2 J wire ([id number]) opened to sterile field. 10:51:42 INFLATOR Merit BasixCompak (EL9343) opened to sterile field. 10:51:43 TUBING High Pressure Extension Tubing (Yo) (SC8450A) opened to sterile field. 10:52:16 Zero performed for pressure channel P1 10:52:18 Zero performed for pressure channel P1 10:52:21 Zero performed for pressure channel P1 10:52:45 A MULTIPACK Pigtail 5 Fr catheter was advanced over the wire and used for Procedure. 10:53:35 LV angiography performed. 10:53:37 LV gram done using JAEGER 10:53:50 EF : 55 % 10:53:52 LV hemodynamics recorded. 10:53:54 Injector settings: Ml/sec: 10, Volume: 20, 10:53:56 Catheter exchanged over wire. 10:55:23 GUIDE 6FR EBU 3.5 catheter (CO0UGA83) opened to sterile field. 10:56:28 Sheath upsized to a 6 Fr Short. 10:56:56 6 Fr EBU 3.5 guide catheter was inserted over the wire 10:59:19 BMW wire advanced. 11:00:52 Wire advanced across lesion. 11:04:15 BMW 300cm [place] 2 J wire ([id number]) opened to sterile field. 11:05:43 Heparin Bolus 8500 units I.V. was administered by Asif Velasquez RN; for anticoagulation; 11:05:48 2nd wire advanced and placed in the DIAG. 11:08:38 Inflate balloon Inflation number: 1 A EUPHORA 3.0 x 20 Balloon ([id number]) was prepped and advanced across the Prox LAD, then inflated to 10 KALYN for 0:10 (min:sec). 11:11:55 Multiple inflations made at 10. 11:12:18 Balloon removed over the wire. 11:14:02 2nd wire removed. 11:15:09 Place stent Inflation Number: 2 A INTEGRITY OTW 3.5 X 12 stent ([id number]) was prepped and advanced across the Prox LAD. The stent was deployed at 12 KALYN for 0:10 (min:sec). 11:16:23 Stent catheter was removed intact over wire. 11:16:24 Wire removed. 11:16:25 Guide catheter removed. 11:17:47 EXOSEAL 6Fr (EX600) opened to sterile field. 11:18:08 Procedure ended.(Physican Out) 11:19:16 Plavix 600 mg P.O. was administered by Asif Velasquez RN; for antiplatelet therapy; 11:21:02 Fluoroscopy time 07.10 minutes. 11:21:07 Fluoroscopy dose: 586 mGy 11:21:07 Flurop Dose total: 586 11:21:13 Contrast amount:Isovue 300 151ml. 11:21:14 Sharps counted by scrub and verified by R.N. 11:21:15 Insertion/operative site no bleeding no hematoma. 11:21:18 Post-op/insertion site Right Femoral artery dressed using a 4 x 4 and Tegaderm. 11:21:19 Post Procedure Pulses reassessed and unchanged 11:21:21 Post-procedure physical assessment completed. ASA score P 2 - A patient with mild systemic disease as per Curtis Yo MD. 11:21:23 Post procedure rhythm: unchanged. 11:21:26 Estimated blood loss: 10 ml 11:21:28 Post procedure instruction explained to patient.Patient verbalizes understanding. 11:21:28 Patient needs reinforcement of post procedure teaching. 11:21:39 Procedure type changed to Cath procedure, Diagnostic procedure, LHC, LHC w/Coronaries, PCI procedure, Coronary Stent, Coronary Stent Initial 11:21:50 Procedure and supply charges have been captured, reviewed, submitted and are correct. 11:21:53 Procedure Complication : No complications 11:22:33 Vital chart was stopped 11:22:33 See physician's report for complete and final results. 11:22:36 Report given to Pre/Post Procedure Room. 11:22:42 Patient transfered to Pre/Post Procedure Room with Stretcher. 11:22:48 Procedure ended. 11:22:48 Full Disclosure recording stopped 11:22:57 End room use (Document Last) Intervention Summary Intervention Notes Time ActionType Lesion and Equipment Action# Pressure Duration Attributes Used 11:08:38 Inflate Prox LAD EUPHORA 3.0 1 10 00:10 balloon x 20 Balloon ([id number]) 11:15:[address] stent Prox LAD INTEGRITY 2 12 00:10 OTW 3.5 X 12 stent ([id number]) Device Usage Item Name Manufacture Quantity Catalog Number Hospital Part Current Minimal Lot# / Charge Number Stock Stock Serial# Code Tegaderm 4 x 4 3M 1 1626W [id number] [id number] 109097 5 (1626W) PERCUTANEOUS Cook Medical 1 [id number] 030841 873924 5 ENTRY 19GA needle ACIST Hand Acist 1 40543 628377 201613 970289 5 Control (65463) [employer] Inc ACIST Manifold Acist 1 01805 252791 785281 634812 5 (12746) [employer] Inc ACIST Syringe Acist 1 60446 145890 567628 954723 20 (38763) Medical Systems Inc Bag Decanter Microtek 1 2001S 498157 40676 262971 5 (2002S) Medical Inc. Medline Cath Cardinal 1 [id number] 169360 72934 810531 5 Meaningfy Health ([id number]) DIAGNOSTIC WIRE [facility] [place] 1 803361 727846 262064 336620 30 .035 260cm J wire (306441) DIAGNOSTIC Cardinal 1 ZO2278 683067 31526 558029 30 Multipack 5Fr Health catheter set (OA0727) SHEATH Prelude Merit 1 DZD-3M-53-035 668617 092334 993548 5 5Fr 0.035 Medical (ELW-7Y-48-035) MULTIPACK JL Cardinal 1 318348 5 4.0 5Fr Health catheter MULTIPACK 3DRC Cardinal 1 403179 5 5Fr catheter Health SHEATH Prelude Merit 1 SBV-1J-16-35 502695 7203423 646570 5 6Fr 0.035 Medical (RDB-7X-67-035) BMW 300cm [place]aca 2 [id number] 484835 821018 070398 5 [place] 2 J Vascular wire ([id number]) INFLATOR Merit Merit 1 EA3185 004240 946381 184851 15 BasixComFitStar Medical (XG5483) TUBING High Merit 1 [id number] 315135 35638 319139 10 Pressure Medical Extension Tubing (Yo) (TH5330D) MULTIPACK Cardinal 1 034640 5 Pigtail 5 Fr Health catheter GUIDE 6FR EBU Medtronic 1 [id number] 103617 40490 280454 3 3.5 catheter ([id number]) EUPHORA 3.0 x Medtronic 1 [id number] 359369 113142 319350 5 [id number] 20 Balloon ([id number]) INTEGRITY OTW Medtronic 1 [id number] 354421 668618 4 [id number] 3.5 X 12 stent ([id number]) EXOSEAL 6Fr Cardinal 1 EX600 885859 811711 827859 10 (EX600) Health Signature Audit [place] Stage Time Signature Unsigned Intra-Procedure 12/29/2017 Patric Randolph 11:25:33 AM RT(R) Signatures Monitor : Patric Randolph RT Signature : Date : Time : [place] [id number] [place] [address]
[~2017-12-29 08:37] MED LIST changes: +ASPIRIN81 MG PO; +BETAPACE 80 MG80 MG PO; +BRILINTA90 MG PO; +COREG 3.1253.125 MG PO; +LIPITOR10 MG PO; +MUCOMYST 20200 MG/M2 INH; +PEPCID AC20 MG PO; +PHOSLO667 MG PO; +PLAVIX75 MG PO; +RENA-VITE TABL0.8 MG PO; +VITAMIN D5000 UNIT PO
[2017-12-29 09:21] VITALS: BP 149/69; Ht 167.6 cm; Wt 85.5 kg
[2017-12-29 09:37] LABS: BASOPHILS 0.5 % (0-2); EOSINOPHILS 2.9 % (0-7); HEMATOCRIT 32.3 % (42.0-54.0); IMMATURE GRANULOCYTES 0.3 % (0-5); LYMPHOCYTES 36.2 % (15-50); MCH 29.6 pg (26.0-34.0); MCHC 34.1 g/dL (31.0-37.0); MCV 86.8 fL (80.0-100.0); MONOCYTES 10.7 % (2-11); NEUTROPHILS 49.4 % (40-80); PLATELET COUNT 138 10x3/uL (130-400); RBC 3.72 10x6/uL (4.20-6.10); RDW 12.8 % (11.5-14.5); WBC 3.7 10x3/uL (4.8-10.8)
[2017-12-29 09:53] LABS: ANION GAP 11.9 mmol/L (8-16); CALCIUM 8.2 mg/dL (8.5-10.1); CARBON DIOXIDE 29.9 mmol/L (21.0-32.0); CREATININE - SERUM 5.7 mg/dL (0.6-1.3); POTASSIUM - SERUM 3.8 mmol/L (3.5-5.1)
== END | disposition home or self-care (01) ==
LOC: D.CATH 08:37
PROVIDERS: Internal Medicine Cardiovascular Disease
DX: I25.119 Atherosclerotic heart disease of native coronary artery with unspecified angina pectoris (principal); Z95.5 Presence of coronary angioplasty implant and graft; Z01.812 Encounter for preprocedural laboratory examination

== ENCOUNTER 2018-01-05 10:41 | Outpatient (CLI) | payer MEDICAID ==
[~2018-01-05] VITALS: Ht 167.6 cm; Wt 86.8 kg
--- NOTE | ~2018-01-05 | HEMODYNAMI ---
PATIENT:NED HOLDER MEDICAL RECORD: [id number] : 56 LOCATION:[facility] ADMISSION DATE: 01/05/18 Generatedon:01/05/201814:08 Patient name: NED HOLDER Patient #: [id number] SSN: : 1960 Date of study: 01/05/2018 Page: Of Hemodynamic Procedure Report Patient Data Patient Demographics Procedure consent was obtained First Name: NED Gender: Male Last Name: GLORY : 1960 Middle Initial: NOEL Age: 57 year(s) Patient #: [id number] Race: Black Additional ID: [id number] Contact details Address: [address] [place] [address] State: [place] City: [place] Zip code: [address] Past Medical History Allergies: No known allergies Admission Admission Data Admission Date: 01/05/2018 Admission Time: 10:41 Admit Source: Other Procedure Procedure Types Cath Procedure Diagnostic Procedure Sedation Charges Moderate Sedation up to 30 minutes PCI Procedure Coronary Stent Coronary Stent Initial Procedure Description Procedure Date Procedure Date: 01/05/2018 Procedure Start Time: 13:12 Procedure End Time: 13:59 Procedure Staff Name Function Curtis Yo MD Performing Physician Kasandra Mulligan RT Monitor Sarai Boyd RN Nurse Asif Velasquez RN Nurse Clarita Andrade RT Scrub Procedure Data Cath Procedure Fluoroscopy Diagnostic fluoroscopy Total fluoroscopy Time: time: 17.3 min 17.3 min Diagnostic fluoroscopy Total fluoroscopy dose: dose: 2343 mGy 2343 mGy Contrast Material Contrast Material Type Amount (ml) Isovue 300 148 Entry Location Entry Primary Successful Side Size Upsize Upsize Entry Closure Succes sful Closure Location (Fr) 1 (Fr) 2 (Fr) Remarks Device Remarks Femoral Right 6 Fr Exoseal artery Short Estimated blood loss: 5 ml Procedure Complications No complications Procedure Medications Medication Administration Route Dosage Oxygen NC 2 l/min Lidocaine 2% added to field 20 Heparin Flush Bag added to field 2 bags (1000units/500ml NS) 0.9% NaCl I.V. 100 ml/hr Versed I.V. 1 mg Fentanyl I.V. 50 mcg Heparin Bolus I.V. 8500 units Versed I.V. 1 mg Fentanyl I.V. 50 mcg Plavix P.O. 75 mg Hemodynamics Rest Heart Rate: 86 (bpm) Snapshots Pre Cath Intra NCS Post Cath Vital Signs Time Heart Resp SPO2 etCO2 NIBP (mmHg) Rhythm Pain Sedation Rate (ipm) (%) (mmHg) Status Level (bpm) 13:00:51 80 18 98 31.5 157/83(123) NSR 0 (11) 10(A) , No pain 13:05:07 78 16 94 33 153/89(122) NSR 0 (11) 10(A) , No pain 13:09:29 86 19 100 0 160/90(143) NSR 0 (11) 10(A) , No pain 13:13:55 84 18 100 31.5 159/91(126) NSR 0 (11) 9(A) , No pain 13:18:18 83 12 98 39.8 143/76(121) NSR 0 (11) 9(A) , No pain 13:22:42 86 15 100 36 148/82(114) NSR 0 (11) 9(A) , No pain 13:27:02 90 16 100 16.5 152/96(122) NSR 0 (11) 9(A) , No pain 13:31:26 93 14 100 19 152/89(118) NSR 0 (11) 9(A) , No pain 13:35:50 96 12 100 23.3 165/89(128) NSR 0 (11) 9(A) , No pain 13:43:46 95 15 100 31.5 161/105(144) NSR 0 (11) 9(A) , No pain 13:48:04 91 14 100 39 153/88(117) NSR 0 (11) 9(A) , No pain 13:52:26 104 12 100 13.5 163/95(133) NSR 0 (11) 9(A) , No pain 13:56:52 92 18 100 0 162/88(122) NSR 0 (11) 10(A) , No pain Medications Time Medication Route Dose Verified Delivered Reason Notes Effectiveness by by 12:59:36 Oxygen NC 2 Curtis Buffie used for l/min Srinath Boyd RN procedure 12:59:49 Lidocaine 2% added 20ml Curtis Curtis for local to vial Srinath Yo MD anesthetic field 13:00:09 Heparin Flush added 2 Curtis Curtis used for Bag to bags Srinath Yo MD procedure (1000units/500ml field NS) 13:00:21 0.9% NaCl I.V. 100 Curtis Buffie Per physician ml/hr Srinath Boyd RN 13:08:44 Versed I.V. 1 mg Curtis Buffie for sedation Srinath Boyd RN 13:08:49 Fentanyl I.V. 50 Curtis Buffie for sedation mcg Srinath Boyd RN 13:20:09 Heparin Bolus I.V. 8500 Curtis Buffie for units Srinath Boyd RN anticoagulation 13:33:43 Versed I.V. 1 mg Curtis Buffie for sedation Srinath Boyd RN 13:33:47 Fentanyl I.V. 50 Curtis Buffie for sedation mcg Srinath Boyd RN 14:01:09 Plavix P.O. 75 mg Curtis Buffie for Srinath Boyd RN antiplatelet therapy Procedure Log Time Note 12:35:06 Admit Source: Other 12:35:11 Diagnostic Cath status Elective 12:35:14 Asif Velasquez RN sent for patient. Start room use. 12:35:15 Time tracking: Regular hours (M-F 7:00 - 5:00) 12:35:20 Plan of Care:Hemodynamics will remain stable., Cardiac rhythm will remain stable., Comfort level will be maintained., Respiratory function will remain adequate., Patient/ family verbilizes understanding of procedure., Procedure tolerated without complication., Recovers from procedure without complications.. 12:46:43 Patient received from Pre/Post Procedure Room to [facility] 2 Alert and oriented. Tansferred to table in Supine position. 12:46:45 Warm blankets applied, and porsha hugger turned on for patient comfort. 12:46:45 Correct patient and procedure confirmed by team. 12:46:47 Signed procedure consent form obtained from patient. 12:46:48 ECG and BP/O2 sat monitors applied to patient. 12:46:54 H&P Date Dictated: 01/05/2018 Within 30 days and on chart., H&P Addendum completed by physician on day of procedure. (MUST COMPLETE FOR ALL OUTPATIENTS). 12:46:55 Pre-procedure instructions explained to patient. 12:46:58 Family in waiting room. 12:47:01 Patient NPO since Midnight. 12:59:25 Vital chart was started 12:59:36 Oxygen 2 l/min NC was administered by Sarai Boyd RN; used for procedure; 12:59:49 Lidocaine 2% 20ml vial added to field was administered by Curtis Yo MD; for local anesthetic; 13:00:09 Heparin Flush Bag (1000units/500ml NS) 2 bags added to field was administered by Curtis Yo MD; used for procedure; 13:00:21 0.9% NaCl 100 ml/hr I.V. was administered by Sarai Boyd RN; Per physician; 13:01:11 Is the patient allergic to Iodine/contrast media? No. 13:01:12 Was the patient premedicated? No 13:01:29 Is patient on blood thinner?Yes 13:01:31 ACC The patient was administered the following blood thiners within the last 24 hours: ACCPlavix 13:01:33 Patient diabetic? Yes. 13:01:34 If diabetic: On Metformin? No 13:01:56 Previous problem with sedation/anesthesia? No ? 13:01:57 Snore? Yes 13:01:58 Sleep apnea? No 13:02:00 Deviated septum? No 13:02:01 Opens mouth fully? Yes 13:02:03 Sticks out tongue? Yes 13:02:06 Airway obstruction? No ? 13:02:11 Dentures? No ? 13:02:15 Pre procedure: right dorsailis pedis pulse 2+ Normal; easily identifiable; not easily obliterated 13:02:17 Pre procedure: left dorsailis pedis pulse 2+ Normal; easily identifiable; not easily obliterated 13:02:20 Patient pain scale 0/10 ?. 13:03:17 IV patent on arrival in right hand with 0.9% NaCl at [facility]. 13:03:20 Lab results completed and on chart. 13:03:24 Right groin area was prepped with chlora-prep and draped in sterile fashion 13:03:25 Alarms reviewed by R. N. 13:03:26 Sharps counted by scrub and verified by R.N. 13:: Physician arrived 13:: --------ALL STOP TIME OUT------ :: Final Timeout: patient, procedure, and site verified with staff and physician. All members of the team are in agreement. 13:03:30 Right groin site verified by team. 13:03:33 Physical assessment completed. ASA score P 2 - A patient with mild systemic disease as per Curtis Yo MD. 13:03:37 Sedation plan: IV Moderate Sedation Medication:Versed, Fentanyl 13:03:42 Use device set Radial Dx or PCI 13:03:43 ACIST Syringe (70189) opened to sterile field. 13:03:43 Medline Cath Pack ([id number]) opened to sterile field. 13:03:44 Bag Decanter (2002S) opened to sterile field. 13:03:44 DIAGNOSTIC WIRE .035 260cm J wire (766396) opened to sterile field. 13:03:45 ACIST Hand Control (16184) opened to sterile field. 13:03:46 ACIST Manifold (54358) opened to sterile field. 13:03:47 Tegaderm 4 x 4 (1626W) opened to sterile field. 13:04:17 GUIDE 6FR AR 1.0 catheter ([id number]) opened to sterile field. 13:04:18 BMW 300cm Bethesda 2 J wire ([id number]) opened to sterile field. 13:04:19 INFLATOR Merit BasixCompak (HL6341) opened to sterile field. 13:04:19 SHEATH 6Fr Prelude ([id number]) opened to sterile field. 13:07:26 Zero performed for pressure channel P1 13:07:33 Zero performed for pressure channel P1 13:08:44 Versed 1 mg I.V. was administered by Sarai Boyd RN; for sedation; 13:08:49 Fentanyl 50 mcg I.V. was administered by Sarai Boyd RN; for sedation; 13:12:18 Procedure started. 13:12:19 Full Disclosure recording started 13:12:22 Local anesthetic to right femoral artery with Lidocaine 2% by Curtis Yo MD.INITIAL ACCESS ONLY 13:12:31 A 6 Fr Short sheath was inserted into the Right Femoral artery 13:13:06 Baseline sample Acquired. 13:18:05 TUBING High Pressure Extension Tubing (Yo) ([id number]) opened to sterile field. 13:19:00 6 Fr ar 1 guide catheter was inserted over the wire 13:19:11 RCA angiography performed. 13:19:14 Injector settings: Ml/sec: 3, Volume: 6, 13:20:09 Heparin Bolus 8500 units I.V. was administered by Sarai Boyd RN; for anticoagulation; 13:22:45 bmw wire advanced then removed; exchanged for whisper wire 13:22:55 WHISPER 300cm guide wire ([id number]) opened to sterile field. 13:25:41 Inflate balloon Inflation number: 1 A EMERGE OTW 2.5 x 15 balloon ([id number]) was prepped and advanced across the Mid RCA, then inflated to 10 KALYN for 0:10 (min:sec). 13:26:19 Inflation number: 2 The EMERGE OTW 2.5 x 15 balloon ([id number]) was reinflated across the Mid RCA, to 12 KALYN for 0:10 (min:sec). 13:27:29 Balloon removed over the wire. 13:33:13 Place stent Inflation Number: 3 A INTEGRITY OTW 3.0 X 22 stent ([id number]) was prepped and advanced across the Mid RCA. The stent was deployed at 12 KALYN for 0:10 (min:sec). 13:33:43 Versed 1 mg I.V. was administered by Sarai Boyd RN; for sedation; 13:33:47 Fentanyl 50 mcg I.V. was administered by Sarai Boyd RN; for sedation; 13:35:54 Stent catheter was removed intact over wire. 13:44:05 Place stent Inflation Number: 4 A INTEGRITY OTW 3.0 X 26 stent ([id number]) was prepped and advanced across the Mid RCA. The stent was deployed at 12 KALYN for 0:10 (min:sec). 13:48:06 bmw wire advanced. 13:49:37 Stent catheter was removed intact over wire. 13:55:11 Wire removed. 13:55:19 Place stent Inflation Number: 1 A INTEGRITY OTW 3.5 X 15 stent ([id number]) was prepped and advanced across the Prox RCA. The stent was deployed at 10 KALYN for 0:10 (min:sec). 13:55:44 Inflation number: 2 The stent balloon was then re-inflated across the Prox RCA to 14 KALYN for 0:10 (min:sec). 13:57:23 Stent catheter was removed intact over wire. 13:57:26 Wire removed. 13:57:29 Guide catheter removed. 13:57:37 EXOSEAL 6Fr (EX600) opened to sterile field. 13:57:52 Sheath removed intact; hemostasis achieved with Exoseal to the Right Femoral artery. 13:57:56 Procedure ended.(Physican Out) 13:58:08 Fluoroscopy time 17.30 minutes. 13:58:13 Fluoroscopy dose: 2343 mGy 13:58:13 Flurop Dose total: 2343 13:58:18 Contrast amount:Isovue 300 148ml. 13:58:20 Sharps counted by scrub and verified by R.N. 13:58:21 Insertion/operative site no bleeding no hematoma. 13:58:25 Post-op/insertion site Right Femoral artery dressed using a 4 x 4 and Tegaderm. 13:58:28 Post procedure rhythm: unchanged. 13:58:30 Estimated blood loss: 5 ml 13:58:31 Post procedure instruction explained to patient.Patient verbalizes understanding. 13:58:32 Patient needs reinforcement of post procedure teaching. 13:59:21 Procedure type changed to Cath procedure, Diagnostic procedure, Sedation Charges, Moderate Sedation up to 30 minutes, PCI procedure, Coronary Stent, Coronary Stent Initial 13:59:25 Procedure and supply charges have been captured, reviewed, submitted and are correct. 13:59:30 Procedure Complication : No complications 13:59:31 Vital chart was stopped 13:59:32 See physician's report for complete and final results. 13:59:33 Report given to Pre/Post Procedure Room. 13:59:36 Patient transfered to Pre/Post Procedure Room with Stretcher. 13:59:37 Procedure ended. 13:59:37 Full Disclosure recording stopped 13:59:46 ACC-PCI Only Patient was given prescriptions, or instructed by Curtis Yo MD to start/continue the following medications upon discharge: Plavix 13:59:48 End room use (Document Last) 14:01:09 Plavix 75 mg P.O. was administered by Sarai Boyd RN; for antiplatelet therapy; Intervention Summary Intervention Notes Time ActionType Lesion and Equipment Action# Pressure Duration Attributes Used 13:25:41 Inflate Mid RCA EMERGE OTW 1 10 00:10 balloon 2.5 x 15 balloon ([id number]) 13:26:19 Reinflate Mid RCA EMERGE OTW 2 12 00:10 balloon 2.5 x 15 balloon ([id number]) 13:33:13 Place stent Mid RCA INTEGRITY 3 12 00:10 OTW 3.0 X 22 stent ([id number]) 13:44:05 Place stent Mid RCA INTEGRITY 4 12 00:10 OTW 3.0 X 26 stent ([id number]) 13:55:19 Place stent Prox RCA INTEGRITY 1 10 00:10 OTW 3.5 X 15 stent ([id number]) 13:55:44 Reinflate Prox RCA INTEGRITY 2 14 00:10 stent OTW 3.5 X 15 balloon stent ([id number]) Device Usage Item Name Manufacture Quantity Catalog Number Hospital Part Current Min imal Lot# / Charge Number Stock Stock Serial# Code ACIST Acist 1 61638 916303 739915 550141 20 Syringe Medical (93496) Systems Inc Medline Cath Cardinal 1 [id number] 972822 78282 039815 5 Scan ([id number]) Bag Decanter Microtek 1 2001S 308538 30399 142257 5 (2001S) Medical Inc. DIAGNOSTIC [place] 1 935911 714087 929160 313758 30 WIRE .035 260cm J wire (448735) ACIST Hand Acist 1 89604 230619 524840 460068 5 Control Medical (12604) Systems Inc ACIST Acist 1 19612 710453 333784 938735 5 Manifold Medical (92192) Systems Inc Tegaderm 4 x 3M 1 1626W 455850 550048 742767 5 4 (1626W) GUIDE 6FR AR Medtronic 1 [id number] 243870 43417 427055 1 1.0 catheter (LT0OC20) BMW 300cm Baca 1 [id number] 758852 973310 047980 5 Bethesda 2 Vascular J wire (1226364H) INFLATOR Merit 1 GW1535 683949 233388 063579 15 [facility] Medical BasixCompak (IP9213) SHEATH 6Fr Merit 1 [id number] 168748 113306 466375 5 Prelude Medical ([id number]) TUBING High Merit 1 [id number] 597495 43870 663465 10 Pressure Medical Extension Tubing (Yo) (WT6388H) WHISPER Baca 1 [id number] 133651 074611 436140 5 300cm guide Vascular wire ([id number]) EMERGE OTW [place] 1 [id number] 464468 456039 440178 5 [id number] 2.5 x 15 Scientific balloon ([id number]) INTEGRITY Medtronic 1 [id number] 888648 239505 4 [id number] OTW 3.0 X 22 stent ([id number]) INTEGRITY Medtronic 1 [id number] 765766 512662 4 [id number] OTW 3.0 X 26 stent ([id number]) INTEGRITY Medtronic 1 [id number] 248292 437636 7 [id number] OTW 3.5 X 15 stent ([id number]) EXOSEAL 6Fr Cardinal 1 EX600 797873 722210 602447 10 (EX600) Health Signature Audit [place] Stage Time Signature Unsigned Intra-Procedure 01/05/2018 Kasandra Mulligan 2:08:24 PM RT(R) Signatures Monitor : Kasandra Mulligan RT Signature : Date : Time : [address] [address]
[~2018-01-05 10:41] MED LIST changes: -BETAPACE 80 MG80 MG PO
[2018-01-05 11:10] VITALS: BP 163/74; BMI 30.4
[2018-01-05 11:25] LABS: BASOPHILS 0.5 % (0-2); EOSINOPHILS 3.7 % (0-7); HEMATOCRIT 35.4 % (42.0-54.0); IMMATURE GRANULOCYTES 0.3 % (0-5); LYMPHOCYTES 45.1 % (15-50); MCH 29.7 pg (26.0-34.0); MCHC 33.9 g/dL (31.0-37.0); MCV 87.6 fL (80.0-100.0); MEAN PLATELET VOLUME 10.4 fL (7.4-10.4); MONOCYTES 8.9 % (2-11); NEUTROPHILS 41.5 % (40-80); PLATELET COUNT 136 10x3/uL (130-400); RBC 4.04 10x6/uL (4.20-6.10); RDW 12.7 % (11.5-14.5); WBC 3.8 10x3/uL (4.8-10.8)
[2018-01-05 11:36] LABS: CARBON DIOXIDE 24.5 mmol/L (21.0-32.0); CREATININE - SERUM 6.6 mg/dL (0.6-1.3); POTASSIUM - SERUM 4.5 mmol/L (3.5-5.1)
[2018-01-05 20:00] VITALS: BP 110/60
[2018-01-05 20:51] VITALS: BP 110/60; Ht 167.6 cm; Wt 86.8 kg
[2018-01-06] VITALS: BP 118/72
[2018-01-06 06:17] VITALS: BP 122/73
[2018-01-06 07:41] VITALS: BP 113/62
[2018-01-06 15:09] VITALS: BP 130/79
[2018-01-06 20:24] VITALS: BP 121/76
[2018-01-07 01:38] VITALS: BP 127/71
[2018-01-07 04:54] VITALS: BP 146/82
[2018-01-07] MEDS ORDERED: BETAPACE 80 MG80 MG PO (08:25)
[2018-01-07 08:44] VITALS: BP 131/75
== END 2018-01-07 09:21 | disposition home or self-care (01) ==
LOC: D.M2 10:41 → D.CATH 10:41 → D.M2 18:01 → D.CATH 01-07 09:21
PROVIDERS: Internal Medicine Cardiovascular Disease
DX: I48.91 Unspecified atrial fibrillation (principal); I25.10 Atherosclerotic heart disease of native coronary artery without angina pectoris; I12.0 Hypertensive chronic kidney disease with stage 5 chronic kidney disease or end stage renal disease; N18.6 End stage renal disease; Z79.82 Long term (current) use of aspirin; Z79.02 Long term (current) use of antithrombotics/antiplatelets; Z79.899 Other long term (current) drug therapy; Z95.5 Presence of coronary angioplasty implant and graft; Z01.812 Encounter for preprocedural laboratory examination